=== PATIENT | male | born 1990 | race African-American/Black ===

== ENCOUNTER 2020-04-19 10:06 | Emergency (ER) | payer OTHER ==
[~2020-04-19] VITALS: Ht 180.3 cm; Wt 63.5 kg
[2020-04-19] MEDS ORDERED: LIDOCAINE 2% MDV 20ML VIAL SC ONE (10:30)
--- NOTE | 2020-04-19 10:43 | REP ---
Left wrist series: Five views. History: Pain over scaphoid after a fall. Findings: Five views of the left wrist including navicular view. These demonstrate normal bones, joints and soft tissues. No navicular or other carpal fracture is seen. There is however evidence of a chip fracture at the base of the second metacarpal at the LONG-TERM articulation. No other fractures seen. Impression: Chip fracture suspected at the base of the second metacarpal at the metacarpal carpal articulation. No navicular or other fracture seen. Electronically Signed by Itz Jose MD 04/19/2020 10:35 A
[2020-04-19 11:39] VITALS: BP 136/87
== END 2020-04-19 11:43 | disposition home or self-care (01) ==
LOC: M ED 10:06
DX: S01.82XA Laceration with foreign body of other part of head, initial encounter (principal); S62.92XA Unspecified fracture of left hand, initial encounter for closed fracture; W19.XXXA Unspecified fall, initial encounter; Y92.89 Other specified places as the place of occurrence of the external cause; Y99.8 Other external cause status

== ENCOUNTER 2020-04-24 06:56 | Emergency (ER) | payer OTHER ==
[~2020-04-24] VITALS: Ht 180.3 cm; Wt 63.6 kg
[2020-04-24 06:57] VITALS: BP 131/77
== END 2020-04-24 07:50 | disposition home or self-care (01) ==
LOC: M ED 06:56
DX: Z48.02 Encounter for removal of sutures (principal)